=== PATIENT | male | born 1945 | race Caucasian/White ===

== ENCOUNTER 2017-02-27 08:23 | Emergency (ER) | payer OTHER ==
[~2017-02-27] VITALS: Ht 182.9 cm; Wt 84.1 kg
[~2017-02-27 08:23] MED LIST: AMOX875T PO; MULT-506 PO; NEOM1SOL20 OTL; RANI150T3 PO
[2017-02-27 08:27] VITALS: TEMP 36.8; Ht 182.9 cm; Wt 84.1 kg
[2017-02-27] MEDS ORDERED: MULT-506 PO (08:59)
[2017-02-27] MEDS ORDERED: SYN25 PO (08:59)
[2017-02-27] MEDS ORDERED: ZNTT/150 PO (08:59)
[2017-02-27] MEDS ORDERED: CHOL1TAB46 PO (08:59)
--- NOTE | 2017-02-27 09:16 | DIAGNOSTIC IMAGING REPORT ---
RIGHT ANKLE 3 VIEWS CLINICAL HISTORY: Right ankle pain. Twisting injury. FINDINGS: 3 views the right ankle are obtained. No prior studies are available for comparison at the time of dictation. The skeletal structures are well mineralized for age. No fracture is seen. The ankle mortise is intact. There are large dorsal and plantar calcaneal enthesophytes. No joint effusion is seen. The overlying soft tissues are within normal limits. IMPRESSION: 1. No acute bony abnormality is seen in the right ankle. 2. Large heel spurs. Electronically signed by: Mike Golden M.D. 02/27/2017 9:15 AM Dictated Date/Time: 02/27/2017 9:14 AM
--- NOTE | 2017-02-27 09:18 | DIAGNOSTIC IMAGING REPORT ---
RIGHT FOOT 3 VIEWS CLINICAL HISTORY: Right foot pain. Twisting injury. FINDINGS: 3 views of the right foot are obtained. No prior studies are available for comparison at the time of dictation. The skeletal structures are well mineralized for age. No fracture is seen. Mild arthritic change is noted at the first metatarsophalangeal joint. The joint spaces are otherwise preserved. 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 Large dorsal and plantar calcaneal enthesophytes are identified. The overlying soft tissues are within normal limits. IMPRESSION: 1. No acute bony abnormality is seen in the right foot. 2. Mild degenerative change and large heel spurs as above. Electronically signed by: Mike Golden M.D. 02/27/2017 9:17 AM Dictated Date/Time: 02/27/2017 9:16 AM
--- NOTE | 2017-02-27 10:08 | EMERGENCY ROOM VISIT NOTE ---
ED Visit Note First contact with patient: 08:30 CHIEF COMPLAINT: Ankle pain HISTORY OF PRESENT ILLNESS: This is a 71-year-old male patient presents to the emergency department after sustaining an injury to the right ankle and foot with a twisting, eversion motion 2 days ago. Patient states he was hiking and twisted his ankle while stepping on an unstable rock. He has continued to walk on the ankle without significant pain, however states the pain became more severe last night and woke him from sleep. States pain was initially 8/10, he took ibuprofen, which has improved the pain greatly. The patient complains of pain along the inside ankle. The patient denies pain of the foot. The patient rates the pain as throbbing and 3/10. The patient is able to bear weight on the foot. Constant pain, worse with movement, weight bearing, and the dependent position. No knee pain, the patient is able to move their toes. No numbness or weakness of the foot, no laceration. The patient has not had a previous fracture to this ankle. The patient has taken ibuprofen for the pain. The patient denies any other injury. REVIEW OF SYSTEMS: A 6 system review of systems was completed with positives and pertinent negatives listed in the HPI. ALLERGIES: None MEDICATIONS: See chart PMH: See chart SOCIAL HISTORY: Denies tobacco, alcohol, illicit drugs. PHYSICAL EXAM: Vital Signs: Reviewed Nurse's notes, vital signs stable. GENERAL : Pleasant and cooperative, no acute distress, but appears in pain, well- developed, well-nourished. MENTAL STATUS: Alert, oriented to person place and time, and cooperative. MUSCULOSKELETAL: The right ankle is mildly swollen, ecchymotic, and tender over the medial malleolus, but the skin is intact and there is no ligamentous instability. There is no fifth metatarsal tenderness. There is no tenderness over the rest of the foot. There is no calf or tibia/ fibular tenderness. There is no visual deformity. The foot and toes are warm and well-perfused. Dorsalis pedis pulse 2+. Sensation to pain and light touch is intact. Capillary refill less than 2 seconds. EMERGENCY DEPARTMENT COURSE: I examined the patient. Differential diagnosis includes ankle fracture, sprain, strain, contusion. X-rays of the right ankle and foot were reviewed by myself and read by radiology and reveal no acute bony abnormality. Oliver wrap and ankle splint were applied to the ankle under my direction and the position was satisfactory. Neurovascular status was rechecked and intact. The patient was instructed on the use of crutches. The patient was discharged home in good condition. Current/Historical Medications Scheduled Cholecalciferol (Vitamin D3), 5,000 UNITS PO DAILY Levothyroxine Sodium (Synthroid), 25 MCG PO DAILY Multivitamin (Multivitamin), 1 TAB PO DAILY Ranitidine HCl (Zantac), 150 MG PO HS Allergies Coded Allergies: No Known Allergies (Unverified , 08/01/15) Vital Signs Date Time Temp Pulse Resp B/P Pulse Ox O2 Delivery O2 Flow Rate FiO2 02/27/17 10:25 55 16 139/62 99 02/27/17 10:08 55 16 139/62 99 Room Air 02/27/17 08:27 36.8 58 18 127/82 99 Room Air Departure Information Impression Primary Impression: Mild sprain of right ankle Dispostion Home / Self-Care Condition GOOD Referrals Job Barrow, D.OAbiola (PCP) Patient Instructions Ankle Sprain, My [facility] Additional Instructions Ice and elevation for 1-2 days, use crutches to avoid weight bearing on the right ankle, wear the splint on the right ankle for comfort. You may remove the splint for showering and sleep. Do not get the splint wet. Ibuprofen, 600 mg and Tylenol 1000 mg every 8 hours if needed for pain. See your doctor or an orthopedic surgeon if there is no improvement in 4 - 5 days. Problem Qualifiers Primary Impression: Mild sprain of right ankle Encounter type: initial encounter Qualified Codes: S93.401A - Sprain of unspecified ligament of right ankle, initial encounter
[2017-02-27 10:25] VITALS: BP 139/62; PULSE 55; O2SAT 99
== END 2017-02-27 10:42 | disposition home or self-care (01) ==
LOC: C.EDB 08:24
DX: S93.401A Sprain of unspecified ligament of right ankle, initial encounter (principal); Z79.899 Other long term (current) drug therapy; X50.1XXA Overexertion from prolonged static or awkward postures, initial encounter; Y93.01 Activity, walking, marching and hiking